=== PATIENT | female | born 1955 | race Caucasian/White ===

== ENCOUNTER 2016-10-14 09:48 | Observation (INO) | payer BC ==
[2016-10-14] MEDS ORDERED: NS 0.9% 1000 ML* 2,000 ML IV ONE (10:28)
[2016-10-14 10:43] LABS: Hematocrit 44 % (35-47); Hemoglobin 14.8 g/dl (12.0-16.0); Mean Corpuscular HGB Conc 33 g/dl (31-36); Mean Corpuscular Hemoglobin 31 pg (27-31); Mean Corpuscular Volume 93 fL (80-97); Mean Platelet Volume 8 um3 (7.4-10.4); Red Blood Count 4.76 10^6/ul (4.0-5.4); Red Cell Distribution Width 15 % (10.5-15); White Blood Count 10.8 10^3/ul (3.5-10.8)
[2016-10-14 10:56] LABS: Urine Bilirubin Negative (Negative); Urine Glucose Negative (Negative); Urine Nitrite Negative (Negative)
[2016-10-14 11:09] LABS: Albumin 4.4 g/dL (3.2-5.2); BUN/Creatinine Ratio 26.2 (8-20); C Reactive Protein 7.57 mg/L (< 5.00); Calcium 9.7 mg/dL (8.6-10.3); EGFR African American 127.8 (>60); EGFR Non-African American 99.4 (>60); Potassium 4.2 mmol/L (3.5-5.0); Total Bilirubin 1.3 mg/dL (0.2-1.0); Total Protein 7.4 g/dL (6.4-8.9)
[2016-10-14] MEDS ORDERED: Iohexol 300* (CONTRAST) 10 ML SDV IV ONE (11:36)
--- NOTE | 2016-10-14 13:45 | RAD ---
INDICATION: Abdominal pain, cramping, vomiting, bloody diarrhea. History of colitis last year. COMPARISON: October 01, [address] and January 11, [address] TECHNIQUE: Multidetector CT images were obtained from the lung bases to the ischial tuberosities with 85 mL Omnipaque 300 IV and oral contrast. Multiplanar reformation. REPORT: Mild dependent subsegmental atelectasis at the lung bases. Negative for pleural effusions. Normal size liver with fatty infiltration. No significant change in 1.6 x 1.5 cm relative hyperdense or enhancing lesion at the dome of the liver strongly favoring benign etiology with the differential including focal sparing of fatty infiltration and hemangioma. No suspicious focal hepatic lesions. No CT abnormality of the gallbladder, pancreas, spleen. Enteric contrast extends to the mid transverse colon. There is long segment moderate mural thickening of the descending colon through the descending colon sigmoid junction extending over approximate 22 cm in length. The sigmoid colon is remarkable for mild diverticulosis without findings of diverticulitis. Normal retrocecal appendix visualized. Negative for ascites, free air, or significant hernias. Normal adrenal glands. Unremarkable kidneys with symmetric nephrograms and pyelograms. Unremarkable ureters and largely decompressed urinary bladder. Unremarkable anteverted uterus. Bilateral small probable cortical inclusion cysts at the ovaries unchanged from the January 11, 2016 exam. Negative for lymphadenopathy. Normal diameter abdominal aorta and iliac arteries with mild atherosclerotic plaque. Normal opacification of the celiac axis, superior mesenteric artery, inferior mesenteric artery, and renal arteries. While less sensitive than a dedicated CT angiogram protocol there is no suggestion of visceral artery stenosis. Normal opacification of the superior mesenteric, splenic, and portal veins. No suspicious focal osseous lesions evident. Advanced L5-S1 degenerative spondylosis. Negative for stigmata of inflammatory sacroiliitis. IMPRESSION: 1. Long segment moderate circumferential mural thickening of the descending colon consistent with nonspecific colitis. Greater involvement at the proximal and mid descending colon and absence of significant involvement at the sigmoid colon in contrast to the January 11, 2016 exam. The primary considerations include infectious and inflammatory etiologies. Negative for perienteric abscess or resulting bowel obstruction. 2. Diverticulosis of the sigmoid colon without findings of diverticulitis. 3. Fatty infiltration of the liver with unchanged low suspicion probable benign region of focal fatty sparing or hemangioma at the dome. 4. Negative for lymphadenopathy.
--- NOTE | 2016-10-14 14:02 | ED ---
Abdominal Pain/Female - HPI Summary HPI Summary: 61 female presents with complaints of lower abdominal cramping that began last night 10/14/16. She states she has been also experiencing blood in her stool and diarrhea. Admits to some nausea but has not vomited. Denies fever/chills, but does states she was in layers of clothes with a heated blanket last night and could not get warm. She is not currently in any pain or discomfort but states the blood in her stool and cramping is a change from her normal bowel movements. Patient had an episode of similar abdominal pain except worse approximately one year ago which she was diagnosed with ischemic colitis. She sees Dr Mendel [place]. She has not had any issues since the last episode until now. Patient has been suffering from UTI's often and is currently being treated with Nitro. States she has experienced tolerance from Cipro. Last normal bowel movement (for her) was approximately 2 days ago. Denies vaginal symptoms. Admits to urinary symptoms due to current UTI that has not gone away after 10 days of treatment. - History of Current Complaint Chief Complaint: EDAbdPain Stated Complaint: BLOODY STOOL/CRAMPING Time Seen by Provider: 10/14/16 10:11 Hx Obtained From: Patient ?: No Onset/Duration: Sudden Onset, Lasting Days, Worse Since Timing: Constant Severity Initially: Mild Severity Currently: Mild Pain Intensity: 0 Pain Scale Used: 0-10 Numeric Location: Diffuse Radiates: No Character: Cramping - similar to menstrual cramps Alleviating Factor(s): Nothing Associated Signs and Symptoms: Positive: Blood in Stool, Decreased Appetite, Nausea, Diarrhea Allergies/Adverse Reactions: Allergies Allergy/AdvReac Type Severity Reaction Status Date / Time Sulfa Drugs Allergy Intermediate Hives Verified 10/01/16 09:51 Home Medications: Home Medications Aspirin EC Low Dose* [Ecotrin EC Low Dose 81 MG*] 81 mg PO DAILY 10/14/16 [ History Confirmed 10/14/16] Cholecalciferol TAB* [Vitamin D TAB*] 400 unit PO BID 10/14/16 [History Confirmed 10/14/16] Rosuvastatin (NF) [Crestor (NF)] 5 mg PO DAILY 10/14/16 [History Confirmed 10/14] amLODIPine TAB* [Norvasc TAB*] 5 mg PO DAILY 10/14/16 [History Confirmed ] metFORMIN* [Glucophage 1000 MG TAB *] 1,000 mg PO BEDTIME 10/14/16 [History Confirmed 10/14/16] metFORMIN* [Glucophage 500 MG TAB *] 500 mg PO DAILY 10/14/16 [History Confirmed 10/14/16] PMH/Surg Hx/FS Hx/Imm Hx Endocrine/Hematology History: Reports: Hx Diabetes - on metformin for prediabetic Cardiovascular History: Reports: Hx Hypertension - ON MEDICATION, Other Cardiovascular Problems/Disorders - [place] Denies: Hx Pacemaker/ICD History: Denies: Hx Renal Disease Sensory History: Reports: Hx Contacts or Glasses Denies: Hx Hearing Aid Opthamlomology History: Reports: Hx Contacts or Glasses Psychiatric History: Reports: Hx Anxiety - ON MEDICATION, Hx Depression - ON MEDICATION Denies: Hx Panic Disorder - Cancer History Hx Chemotherapy: No Hx Radiation Therapy: No - Surgical History Surgery Procedure, Year, and Place: BACK SURGERY-2007 Hx Anesthesia Reactions: No Infectious Disease History: No Infectious Disease History: Denies: Hx Clostridium Difficile, Traveled Outside the [place] in Last 30 Days - Family History Known Family History: Positive: Cardiac Disease, Hypertension, Other - Colon Cancer - Social History Alcohol Use: Rare Substance Use Type: Reports: None Smoking Status (MU): Never Smoked Tobacco Review of Systems Constitutional: Negative Eyes: Negative ENT: Negative Cardiovascular: Negative Respiratory: Negative Positive: Abdominal Pain, Diarrhea, Nausea, Other - blood in stool Positive: burning, dysuria, frequency Musculoskeletal: Negative Skin: Negative Neurological: Negative Psychological: Normal All Other Systems Reviewed And Are Negative: Yes Physical Exam Triage Information Reviewed: Yes Vital Signs On Initial Exam: Initial Vitals Temp Pulse Resp BP Pulse Ox 97.8 F 75 20 148/63 95 10/14/16 09:52 10/14/16 09:52 10/14/16 09:52 10/14/16 09:52 10/14/16 09:52 Vital Signs Reviewed: Yes Appearance: Positive: Well-Appearing, No Pain Distress, Well-Nourished Skin: Positive: Warm, Skin Color Reflects Adequate Perfusion, Dry Head/Face: Positive: Normal Head/Face Inspection Eyes: Positive: Normal, Conjunctiva Clear ENT: Positive: Normal ENT inspection, Hearing grossly normal, Pharynx normal Neck: Positive: Supple, Nontender, No Lymphadenopathy Respiratory/Lung Sounds: Positive: Clear to Auscultation, Breath Sounds Present Cardiovascular: Positive: Normal, RRR, Pulses are Symmetrical in both Upper and Lower Extremities Abdomen Description: Positive: No Organomegaly, Soft, Other: - very minimal tenderness on deep palpation of lower left and right quadrants, umbilical. more uncomfortable.. Negative: Bruit, CVA Tenderness (R), CVA Tenderness (L), Distended, Guarding, McBurney's Point Tenderness, Peritoneal Signs Bowel Sounds: Positive: Hypoactive Pelvic Exam: Positive: external exam normal - per patient Musculoskeletal: Positive: Normal, Strength/ROM Intact Neurological: Positive: Normal, Sensory/Motor Intact, Alert, Oriented to Person Place, Time Psychiatric: Positive: Normal, Affect/Mood Appropriate - [place] Coma Scale Coma Scale Total: 15 Diagnostics - Vital Signs Vital Signs Temp Pulse Resp BP Pulse Ox 10/14/16 12:37 55 125/51 96 10/14/16 12:13 65 96 10/14/16 11:00 66 95 10/14/16 10:20 80 92 10/14/16 10:17 129/56 10/14/16 09:52 97.8 F 75 20 148/63 95 - Laboratory Lab Results: Lab Results 10/14/16 10/14/16 10/14/16 Range/Units 10:15 10:20 10:20 WBC 10.8 (3.5-10.8) 10^3/ul RBC 4.76 (4.0-5.4) 10^6/ul Hgb 14.8 (12.0-16.0) g/dl Hct 44 (35-47) % MCV 93 (80-97) fL MCH 31 (27-31) pg MCHC 33 (31-36) g/dl RDW 15 (10.5-15) % Plt Count 209 (150-450) 10^3/ul MPV 8 (7.4-10.4) um3 Neut % (Auto) 86.2 H (38-83) % Lymph % (Auto) 6.9 L (25-47) % [place] % (Auto) 4.3 (1-9) % Eos % (Auto) 1.0 (0-6) % Baso % (Auto) 1.6 (0-2) % Absolute Neuts (auto) 9.3 H (1.5-7.7) 10^3/ul Absolute Lymphs (auto) 0.7 L (1.0-4.8) 10^3/ul Absolute Monos (auto) 0.5 (0-0.8) 10^3/ul Absolute Eos (auto) 0.1 (0-0.6) 10^3/ul Absolute Basos (auto) 0.2 (0-0.2) 10^3/ul Absolute Nucleated RBC 0 10^3/ul Nucleated RBC % 0 Sodium 137 (133-145) mmol/L Potassium 4.2 (3.5-5.0) mmol/L Chloride 102 (101-111) mmol/L Carbon Dioxide 24 (22-32) mmol/L Anion Gap 11 (2-11) mmol/L BUN 16 (6-24) mg/dL Creatinine 0.61 (0.51-0.95) mg/dL Est GFR ( Amer) 127.8 (>60) Est GFR (Non-Af Amer) 99.4 (>60) BUN/Creatinine Ratio 26.2 H (8-20) Glucose 120 H (70-100) mg/dL Lactic Acid (0.5-2.0) mmol/L Calcium 9.7 (8.6-10.3) mg/dL Total Bilirubin 1.30 H (0.2-1.0) mg/dL AST 20 (13-39) U/L ALT 23 (7-52) U/L Alkaline Phosphatase 78 (34-104) U/L C-Reactive Protein 7.57 H (< 5.00) mg/L Total Protein 7.4 (6.4-8.9) g/dL Albumin 4.4 (3.2-5.2) g/dL Globulin 3.0 (2-4) g/dL Albumin/Globulin Ratio 1.5 (1-3) Lipase 33 (11.0-82.0) U/L Urine Color Johanny Urine Appearance Clear Urine pH 7.0 (5-9) Ur Specific [place] 1.018 (1.010-1.030) Urine Protein Negative (Negative) Urine Ketones Trace H (Negative) Urine Blood Negative (Negative) Urine Nitrate Negative (Negative) Urine Bilirubin Negative (Negative) Urine Urobilinogen Negative (Negative) Ur Leukocyte Esterase Negative (Negative) Urine Glucose Negative (Negative) Urine Ascorbic Acid * H (Negative) 10/14/16 Range/Units 10:20 WBC (3.5-10.8) 10^3/ul RBC (4.0-5.4) 10^6/ul Hgb (12.0-16.0) g/dl Hct (35-47) % MCV (80-97) fL MCH (27-31) pg MCHC (31-36) g/dl RDW (10.5-15) % Plt Count (150-450) 10^3/ul MPV (7.4-10.4) um3 Neut % (Auto) (38-83) % Lymph % (Auto) (25-47) % [place] % (Auto) (1-9) % Eos % (Auto) (0-6) % Baso % (Auto) (0-2) % Absolute Neuts (auto) (1.5-7.7) 10^3/ul Absolute Lymphs (auto) (1.0-4.8) 10^3/ul Absolute Monos (auto) (0-0.8) 10^3/ul Absolute Eos (auto) (0-0.6) 10^3/ul Absolute Basos (auto) (0-0.2) 10^3/ul Absolute Nucleated RBC 10^3/ul Nucleated RBC % Sodium (133-145) mmol/L Potassium (3.5-5.0) mmol/L Chloride (101-111) mmol/L Carbon Dioxide (22-32) mmol/L Anion Gap (2-11) mmol/L BUN (6-24) mg/dL Creatinine (0.51-0.95) mg/dL Est GFR ( Amer) (>60) Est GFR (Non-Af Amer) (>60) BUN/Creatinine Ratio (8-20) Glucose (70-100) mg/dL Lactic Acid 2.5 H* (0.5-2.0) mmol/L Calcium (8.6-10.3) mg/dL Total Bilirubin (0.2-1.0) mg/dL AST (13-39) U/L ALT (7-52) U/L Alkaline Phosphatase (34-104) U/L C-Reactive Protein (< 5.00) mg/L Total Protein (6.4-8.9) g/dL Albumin (3.2-5.2) g/dL Globulin (2-4) g/dL Albumin/Globulin Ratio (1-3) Lipase (11.0-82.0) U/L Urine Color Urine Appearance Urine pH (5-9) Ur Specific [place] (1.010-1.030) Urine Protein (Negative) Urine Ketones (Negative) Urine Blood (Negative) Urine Nitrate (Negative) Urine Bilirubin (Negative) Urine Urobilinogen (Negative) Ur Leukocyte Esterase (Negative) Urine Glucose (Negative) Urine Ascorbic Acid (Negative) Result Diagrams: 10/14/16 19:01 10/14/16 10:20 Lab Statement: Any lab studies that have been ordered have been reviewed, and results considered in the medical decision making process. - CT abdomen/pelvis CT Interpretation: Positive (See Comments) - 1. Long segment moderate circumferential mural thickening of the descending colon consistent with nonspecific colitis. Greater involvement at the proximal and mid descending colon and absence of significant involvement at the sigmoid colon in contrast to the January 11, 2016 exam. The primary considerations include infectious and inflammatory etiologies. Negative for perienteric abscess or resulting bowel obstruction. 2. Diverticulosis of the sigmoid colon without findings of diverticulitis. 3. Fatty infiltration of the liver with unchanged low suspicion probable benign region of focal fatty sparing or hemangioma at the dome. 4. Negative for lymphadenopathy. CT Interpretation Completed By: Radiologist Re-Evaluation - Re-Evaluation First Eval Re-Evaluation Time: 10:55 Change: Unchanged - patient is still feeling fine, without pain and nausea Second Eval Re-Evaluation Time: 13:20 Change: Unchanged - patient is still feeling ok and is aware of the plan Abdominal Pain Fem Course/Dx - Course Course Of Treatment: labs, UA, stool cultures and CT with contrast obtained. Fluids given. Patient was not having any pain or nausea at this time therefore not addressed. Spoke with Dr Oglesby, her GI physician who was also production planner. States he thinks she needs to be admitted as this may be the beginning of ischemic bowel flare up. Also instructed to begin antibiotcs. Contacts Dr Jimenez for admission. patient is aware with this plan and agrees. - Diagnoses Differential Diagnosis: Positive: Appendicitis, Bowel Obstruction, Constipation , Diverticulitis, Irritable Bowel Syndrome, Urinary Tract Infection, Other Provider Diagnoses: Colitis - Provider Notifications Discussed Care Of Patient With: Dr Tony Rodriguez Time Discussed With Above Provider: 14:00 Instructed by Provider To: Admit As Inpatient Discharge - Discharge Plan Condition: Stable Disposition: ADMITTED TO [facility]
[2016-10-14] MEDS ORDERED: Piperac/Tazob 3.375 gm in NS* 3.375 GM/100 ML BAG IVPB ONE (15:00)
[2016-10-14] MEDS ORDERED: Acetaminophen TAB* 325 MG PO PRN (15:15)
[2016-10-14] MEDS ORDERED: Dextrose 50% Syringe 50 ML* 25 GM/50 ML SYRINGE IV PUSH PRN (15:15)
[2016-10-14] MEDS: Insulin LISPRO* 1 UNITS UNIT SUBCUT SCH (17:33)
[2016-10-14 19:28] LABS: Hematocrit 43 % (35-47); Hemoglobin 13.7 g/dl (12.0-16.0)
--- NOTE | 2016-10-14 20:00 | HP ---
HISTORY AND PHYSICAL: DATE OF ADMISSION: 10/14/16 PRIMARY CARE PROVIDER: Kiana Fink NP ATTENDING PHYSICIAN WHILE IN THE HOSPITAL: Maite Avalos MD * (report dictated by Rusty White NP) CHIEF COMPLAINT: 1. Abdominal discomfort. 2. Bright red blood per rectum. HISTORY OF PRESENT ILLNESS: Mrs. Hewitt is a 61-year-old female patient who has a history of hypertension, hyperlipidemia, diabetes on p.o. medications only , history of GERD and ischemic colitis. She had an episode in December 2015. She comes in today stating that she woke up around 11:15 last night. She was feeling fine prior to this. She had a sudden onset of lower abdominal discomfort and cramping. She noticed that she was having some blood per rectum similar to her last episode but not nearly as much pain as what she had before. She was immediately concerned and she came into the hospital to be evaluated as she had had this previously and the fact that she started just having maribel blood per rectum was concerning to her. She said that she did have some chills. She did state that she had some dry heaves and vomiting. She had a bowel movement here in the ED, which appeared to be brown in color and no more blood. She again was concerned and was evaluated in the ED. Ultimately, CAT scan was obtained and there was concern for a possible ischemic colitis again and the hospitalist service was asked to evaluate in admission. She denied any chest pain, denied having any documented fevers and denied having any shortness of breath. PAST MEDICAL HISTORY: Significant for: 1. Hypertension. 2. Chronic back pain. 3. Hyperlipidemia. 4. Diabetes. 5. GERD. 6. Ischemic colitis. PAST SURGICAL HISTORY: The patient has had a history of lumbar spine surgery. HOME MEDICATIONS: Include: 1. Metformin 500 mg in the morning, 1000 mg at bedtime. 2. Norvasc 5 mg daily. 3. Diovan 80 mg daily. 4. Crestor 5 mg daily. 5. Zantac 150 mg p.o. b.i.d. 6. Omeprazole 20 mg daily. 7. Fish oil 1000 mg daily. 8. Multivitamin 1 tablet daily. 9. Lactobacillus 1 capsule daily. 10. Cranberry 1 capsule p.o. b.i.d. 11. Coenzyme Q10 10 mg p.o. daily. 12. Tylenol 650 mg every 6 hours as needed. 13. Aspirin 81 mg daily. 14. Calcium carbonate 2 tabs p.o. daily. 15. Oyster calcium 500 mg p.o. daily. 16. Vitamin D 400 units daily. ALLERGIES: To medications include SULFA. FAMILY HISTORY: Her mother had a history of [place] and colon cancer. Father had lung cancer. SOCIAL HISTORY: The patient does not smoke. Occasionally drinks alcohol. Surrogate decision maker is her . REVIEW OF SYSTEMS: There is no documented fever. She does admit to having some chills. She denies having any significant weight change. There was no double vision. She denies having any ear discharge. There was no rhinorrhea. There is no sore throat. No thyroid enlargement. She denies having any chest pain. There is no orthopnea. There is no nocturnal dyspnea. There was abdominal discomfort per my HPI. There was episodes of nausea with vomiting. No dysuria. No frequency. She denies having any loss of consciousness. No pruritus and no skin ulcerations. Review of 14 systems completed, all others were negative. PHYSICAL EXAMINATION GENERAL: At this time, Mrs. Hewitt is a 61-year-old female patient. She is sitting in the ER stretcher. She does not appear to be in any acute distress. VITAL SIGNS: Reveal blood pressure 132/64, pulse 74, respirations 18, O2 sat 99 %, temperature 98.7. HEENT: Head: Atraumatic, normocephalic. Eyes: EOMs are intact. Sclerae anicteric and not pale. Throat: Oral mucosa appears to be moist. No oropharyngeal erythema. NECK: Supple. LUNGS: Clear to auscultation bilaterally. HEART: Sounds S1, S2. Regular rate and rhythm. No murmurs, rubs, or gallops. ABDOMEN: Soft, it was flat. She is actually nontender. Bowel sounds were present. EXTREMITIES: Pulses were 2+ throughout. She is able to move all 4 extremities with 5/5 strength. NEUROLOGIC: The patient is awake, alert, and oriented x3. Tongue midline. Human Resources Hr Generalist were equal. No gross focal deficits. SKIN: Intact. DIAGNOSTIC STUDIES/LABORATORY DATA: Today revealed WBC of 10.8, RBC of 4.76, hemoglobin 14.8, hematocrit of 44, platelet count of 209. Sodium was 137, potassium 4.2, chloride 102, bicarb 24, BUN 16, creatinine 0.61, glucose 120, lactic 2.5, and calcium 9.7, total bili 1.3, AST 20, ALT 23, alk phos 78. CRP is 7.5, albumin 4.4, lipase 33. Urine was obtained, showed trace ketones. Urine ascorbic acid was noted. The CT of the abdomen and pelvis revealed a long segment moderate circumferential mural thickening of the descending colon consistent with a nonspecific colitis, greater involvement of the proximal and mid descending colon and is absent of significant involvement at the sigmoid in contrast to . The primary considerations include infectious and inflammatory etiologies, negative for perienteric abscess or resulting bowel obstruction. Diverticulosis of the sigmoid colon without diverticulitis. Fatty infiltrate of the liver was unchanged. Low suspicion, probable benign region of focal fatty sparing or hemangioma at the dome. Negative for lymphadenopathy. Old medical records reviewed. ASSESSMENT AND PLAN: Mrs. Hewitt is a 61-year-old female patient coming into the ER today with complaints of abdominal discomfort sudden onset with bright red blood per rectum and on evaluation was found to have colitis. She will be admitted under observation status for: 1. Colitis: I suspect the etiology of this is ischemic colitis, which is unusual because this is a second bout she has had in almost a year's time. I think at this point, I did touch base with Dr. Oglesby, who will evaluate the patient. I am going to send off a hypercoagulable workup per the request of Dr. Oglesby. We will go ahead and place her on Zosyn, clear liquid diet. She may undergo a flex sig with Dr. Oglesby tomorrow. If he deems appropriate, we will try for pain control. We will continue to follow and monitor closely. 2. Hypertension. Continue meds as prescribed with the exception of losartan. 3. Chronic back pain. Continue p.r.n. Tylenol. 4. Hyperlipidemia. Continue statin therapy. 5. Gastroesophageal reflux disease. Continue PPI therapy. 6. Diabetes. She will be on a lispro sliding scale. 7. DVT prophylaxis. I am just going to put her on SCD's because of the bright red blood per rectum for now. 8. Fluids, electrolytes, nutrition. Clear liquid diet. TIME SPENT: Time spent on the admission was approximately 60 minutes, greater than half the time was spent [id number] with the patient obtaining my history and physical, and the other half time was spent going over the plan of care with patient and implementing plan of care. I did discuss the plan of care with my attending, Dr. Avalos, she is in agreement. RUSTY WHITE NP CC: Kiana Fink NP; Dr. Oglesby* [id number]/[facility] #: [id number] [facility]
[2016-10-14] MEDS: NS 0.9% 1000 ML* 1,000 ML IV SCH (20:33)
[2016-10-14] MEDS: Piperac/Tazob 3.375 gm in NS* 3.375 GM/100 ML BAG IVPB SCH (20:33)
--- NOTE | 2016-10-14 22:25 | CONS ---
CONSULTATION REPORT: DATE OF CONSULT: 10/14/16 REASON FOR CONSULTATION: Abdominal pain, rectal bleeding, nausea, vomiting, and inflammatory change of the colon. NARRATIVE: This is a 61-year-old woman with a history of diabetes, hypertension , and recurrent UTIs. She was actually hospitalized in December of 2015 for an episode of ischemic colitis, which resolved with conservative therapy. She did well thereafter, but presents today with 24 hours of sudden onset of abdominal pain associated with diarrhea and rectal bleeding. Her symptoms developed rather suddenly yesterday. She was feeling well prior to that. She also experienced nausea and vomiting. She presents to the emergency room and was found to have inflammatory change involving the descending colon on her CAT scan. Prior to the onset of her symptoms, she was feeling well. She did go to [facility] about 5 days ago, but there is no contacts with any infection. She has also been on nitrofurantoin for several weeks for recurrent UTIs. Her last colonoscopy was in July of 2015, which showed diverticulosis and a few small polyps, but no other pathology. PAST MEDICAL HISTORY: Include diabetes, hypertension, hyperlipidemia, and UTI. MEDICATIONS: Ambulatory medicines are: 1. Calcium. 2. Omeprazole 20 mg a day. 3. Crestor 5 mg a day. 4. Diovan 80 mg a day. 5. Norvasc 5 mg a day. 6. Metformin 500 mg alternating with 1000 mg daily. FAMILY HISTORY: Notable for her mother who had colorectal cancer. REVIEW OF SYSTEMS: She denies any melena, fevers, or chills. She has had no oral lesion, skin rashes, or weight loss. PHYSICAL EXAM: She is a well-appearing woman, in no acute distress. Temperature is 98.1, blood pressure is 134/72, heart rate of 72 and regular. She is not pale. Lungs are clear. Cardiac exam reveals a regular rhythm without murmur. Abdomen is soft without any tenderness, mass, or organomegaly. Bowel sounds are hypoactive, but present. DIAGNOSTIC STUDIES/LAB DATA: Data include a white count of 7.8, hemoglobin of 14.8. C-reactive protein of 7.57. C. difficile that is negative. Stool lactoferrin that is negative as well. IMPRESSION: A 61-year-old woman with a prior history of ischemic colitis, presenting with sudden onset of segmental colitis involving the descending colon. This certainly could be consistent with a second attack of ischemic colitis. It is un usual to have a second attack, but it is certainly possible. Clinically, she is doing relatively well at this point and is now pain free. I recommended an unprepped sigmoidoscopy to better define this inflammatory change, which we will proceed with tomorrow. I also recommended a hypercoagulable workup, which we discussed as well. CC: Dr. Peace * [id number]/[facility] #: [id number] [facility]
[2016-10-15] MEDS: Piperac/Tazob 3.375 gm in NS* 3.375 GM/100 ML BAG IVPB SCH ×2 (04:34→12:40)
[2016-10-15] MEDS ORDERED: Omeprazole CAP* 20 MG PO SCH (07:30)
[2016-10-15] MEDS: NS 0.9% 1000 ML* 1,000 ML IV SCH (08:30)
[2016-10-15] MEDS: Insulin LISPRO* 1 UNITS UNIT SUBCUT SCH ×3 (08:46→16:24)
[2016-10-15] MEDS ORDERED: Lactobacillus Acidophilu (GG)* 1 CAP CAP PO SCH (09:00)
[2016-10-15] MEDS ORDERED: Aspirin EC Low Dose* 81 MG TAB.EC PO SCH (09:00)
[2016-10-15] MEDS ORDERED: Atorvastatin* 10 MG TAB PO SCH (09:00)
[2016-10-15] MEDS ORDERED: Multivitamins/Minerals TAB PO SCH (09:00)
[2016-10-15] MEDS ORDERED: fentaNYL* 50 MCG/ML 2 ML VIAL (100 MCG VIAL) ONE (16:08)
[2016-10-15] MEDS ORDERED: Midazolam* 1 MG/ML 10 ML VIAL (10 MG) ONE (16:08)
[2016-10-15 17:28] VITALS: BP 122/51
--- NOTE | 2016-10-16 05:27 | PRO ---
DATE OF PROCEDURE: 10/15/16 - ROOM #410 PROCEDURE: Flexible sigmoidoscopy with biopsies. MEDICINES: Versed 7 mg IV, Fentanyl 50 mcg IV. NARRATIVE: This is a 61-year-old woman who presented to the hospital with sudden onset of abdominal pain, diarrhea,and rectal bleeding. She did undergo a CAT scan of the abdomen,which suggests a colitis involving the descending colon. She has been admitted and is feeling better. The bleeding has subsided. Interestingly, last year, she had a similar presentation, which was thought to be secondary to ischemic colitis. We recommended a flexible sigmoidoscopy at this point to better demonstrate the inflammatory changes seen on the CAT scan. DESCRIPTION OF PROCEDURE: After the procedure was discussed with the patient, risks and benefits were outlined, written consent was obtained. The patient was placed in the left lateral decubitus position, and a rectal exam was performed. The rectal exam was normal without any palpable abnormality. At that point, sigmoidoscopy was carried out. A video pediatric flexible colonoscope was inserted anally and advanced to about 70 cm, which seemed to correlate to the descending colon. This was an unprepped exam. There was material seen throughout the colon that was yellow, but not bloody. Views were generally good. The patient tolerated the procedure well and there were no immediate complications. FINDINGS: Sigmoidoscopy to what appeared to be the descending colon was performed. Within the descending colon, there was an inflammatory change appreciated. There was streaky erythema and friability to the mucosa and some small ulcerations, which was suggestive of [id number] ischemic colitis. Biopsies were obtained. More distally in the sigmoid colon, there were no mucosal abnormalities seen or inflammatory change. She did have some sigmoid diverticulosis. No polyp or mass was identified. CONCLUSION: Inflammatory change in the descending colon highly suggestive of ischemic colitis, which was biopsied. RECOMMENDATION: The results were discussed with the patient. She likely can be discharged. This is her second episode of ischemic colitis and therefore I agree with pursuing a hypercoagulable workup. CC: Inés Peace MD* [id number]/[facility] #: [id number] MTDD
--- NOTE | 2016-10-16 06:35 | DS ---
DISCHARGE SUMMARY: DATE OF ADMISSION: 10/14/16 DATE OF DISCHARGE: 10/15/16 PRIMARY CARE PROVIDER: Kiana Fink NP PRIMARY DIAGNOSIS: Ischemic colitis. SECONDARY DIAGNOSES: Include: 1. Hypertension. 2. Hyperlipidemia. 3. Diabetes. 4. Gastroesophageal reflux disease. 5. History of ischemic colitis. MEDICATIONS ON DISCHARGE: Include: 1. Ciprofloxacin 500 mg twice daily for 5 additional days. 2. Metformin 500 mg in the morning and 1000 mg at bedtime. 3. Fish oil 1000 mg daily. 4. Coenzyme Q10 10 mg daily. 5. Aspirin 81 mg daily. 6. Acetaminophen 650 mg every 6 hours as needed for pain or fever. 7. Vitamin D 400 mg twice daily. 8. Calcium 500 mg daily. 9. Calcium carbonate and cholecalciferol 2 tabs daily. 10. Prilosec 20 mg daily. 11. Multivitamin 1 tab daily. 12. Lactobacillus 1 tab daily. 13. Cranberry, vitamin C, vitamin E 1 cap twice daily. 14. Valsartan 80 mg daily. 15. Rosuvastatin 5 mg daily. 16. Ranitidine 150 mg twice daily. Please note discontinuation of: Antihypertensives. PERTINENT LABORATORY DATA: Hemoglobin on presentation 14.8, followup next day 13.7. PROCEDURES PERFORMED DURING HOSPITAL STAY: Sigmoidoscopy performed by Dr. Oglesby notable for apparent ischemic colitis with biopsies pending. HISTORY OF PRESENT ILLNESS AND HOSPITAL COURSE: This is a 61-year-old female with past medical history as outlined in the history of present illness on the day of admission presented to the hospital with many episodes of bright red blood per rectum and crampy abdominal pain. She noted this pain was similar to previous episode of ischemic colitis. She had a CT scan of her abdomen on the day of presentation notable for the long segment with moderate circumferential mural thickening of the descending colon with the greater involvement of the proximal and mid descending colon and absence of significant involvement of the sigmoid colon, which is in contrast to her previous imaging in December 2015. She was admitted to the hospitalist service, received IV fluids and serial lab testing indicated above. Discharge hemoglobin of 13.7. She underwent sigmoidoscopy with Dr. Oglesby notable for ischemic colitis based on appearance. She had no further bright red blood per rectum after admission to the hospital. Abdominal pain was resolved. She was tolerating a diet on the day of discharge. Recurrent episodes of ischemic colitis are rare and therefore on presentation she did have a hypercoagulable workup sent including activated protein C, antithrombin 3, cardiolipins, factor V Leiden mutation, homocysteine , lupus anticoagulant performed on gene mutation, protein C and protein S activity. All these tests will need followup after her discharge. There were no complications during the patient's hospital stay. At followup please; 1. Followup aforementioned blood tests as indicated above. 2. Followup on biopsy taken by Dr. Oglesby. 3. Ensure patient follows up with Dr. Oglesby as indicated in her discharge work. She shall be seen in 1 to 2 weeks, discussed with the patient. Please follow blood pressure on decreased antihypertensive regimen. Discharge blood pressure is 122/51. 4. Reasons to return to the hospital included but not limited to recurrent worsening symptoms including abdominal pain, bright red blood per rectum, bleeding from any source, fevers, chills, night sweats, inability to tolerate food or medications, chest pain, shortness of breath, loss of consciousness, near loss of consciousness were discussed with the patient and she acknowledged understanding. TIME SPENT: Greater than 40 minutes was spent on the discharge of this patient , greater than half was spent [id number] with the patient. CC: Kiana Fink NP * [id number]/[facility] #: [id number] LISA
[2016-10-18 11:00] LABS: Protein C Activity 133 % (70 - 150)
[2016-10-18 13:38] LABS: LAC APTT 29 sec (26 - 36); Lac DRVVT Screen Ratio 0.8 ratio (0.0 - 1.1); Prothrombin Time(LAC) 11.1 sec
[2016-10-18 15:31] LABS: Phospholipid Ab IgG < 9.4 GPL; Phospholipid Ab IgM, S > 150.0 MPL
== END 2016-10-15 18:20 | disposition home or self-care (01) ==
LOC: ED 09:48 → MED 14:09
PROVIDERS: ADMIT Internal Medicine; ATTEND Internal Medicine
PROC: 0DBM8ZX Excision of Descending Colon, Via Natural or Artificial Opening Endoscopic, Diagnostic (ICD-10-PCS; principal; 2016-10-14)
DX: K55.9 Vascular disorder of intestine, unspecified (principal); I10 Essential (primary) hypertension; E78.5 Hyperlipidemia, unspecified; E11.9 Type 2 diabetes mellitus without complications; K21.9 Gastro-esophageal reflux disease without esophagitis; Z79.899 Other long term (current) drug therapy; Z79.84 Long term (current) use of oral hypoglycemic drugs; Z79.82 Long term (current) use of aspirin; Z88.2 Allergy status to sulfonamides; M54.9 Dorsalgia, unspecified; G89.29 Other chronic pain; K76.0 Fatty (change of) liver, not elsewhere classified
CPT/HCPCS: 36415; 74177; 80053; 81003; 81240; 81241; 83090; 83605; 83630; 83690; 85014; 85018; 85025; 85300; 85303; 85306; 85307; 85610; 85613; 85730; 86140; 86147; 87493; 96361; 96365; 96366; 99283; A9270-GY; G0378; J2250; J2543; J3010; Q9967

== ENCOUNTER 2017-01-28 09:57 | Emergency (ER) | payer BC ==
--- NOTE | 2017-01-28 10:47 | RAD ---
HISTORY: Trauma, rule out hemorrhage COMPARISONS: August 17, 2014 TECHNIQUE: Multiple contiguous axial CT scans were obtained of the head without intravenous contrast. FINDINGS: HEMORRHAGE/INFARCT: There is no hemorrhage or acute infarct. MASSES/SHIFT: There is no mass or shift. EXTRA-AXIAL SPACES: There are no extra-axial fluid collections. SULCI AND VENTRICLES: The sulci and ventricles are normal in size and position for the patient's stated age. CEREBRUM: There are no focal parenchymal abnormalities. BRAINSTEM: There are no focal parenchymal abnormalities. CEREBELLUM: There are no focal parenchymal abnormalities. VESSELS: The vessels are grossly normal. PARANASAL SINUSES: The paranasal sinuses are clear. ORBITS: The orbits are unremarkable. BONES AND SOFT TISSUE: No bone or soft tissue abnormalities are noted. OTHER: None IMPRESSION: NO ACUTE INTRACRANIAL PATHOLOGY.
[2017-01-28 11:33] VITALS: BP 129/65
--- NOTE | 2017-01-28 15:47 | ED ---
Natalie Mckoy Edward, scribed for Hebert Tabor MD on 01/28/17 at 1052 . Head Injury - HPI Summary HPI Summary: 61 y/o female presents to ED s/p head injury yesterday. Patient hit her head with the back of metal chair. Patient was asymptomatic immediately following the injury, including no JEFFREY noted. No LOC after injury. Today, the patient developed a mild JEFFREY on the R side rated at a 1/10. There is ecchymosis on the L upper arm secondary to hitting her arm on a chair on a bus recently. Patient denies vomiting, neck pain, CP, and SOB. Patient is on a blood thinner. PMHx chronic back pain and ischemic colitis. - History Of Current Complaint Chief Complaint: EDHeadInjury Stated Complaint: HIT HEAD Time Seen by Provider: 01/28/17 10:47 Hx Obtained From: Patient Mechanism Of Injury: Blunt Trauma Onset/Duration: Started Hours Ago - Light JEFFREY this morning Onset of Pain: Hours - This morning Severity Currently: None Severity Initially: Mild Pain Intensity: 1 Associated Signs And Symptoms: Negative - No CP, SOB, neck pain, vomiting, Bruising - Upper L arm, old injury, Headache - Mild, started this morning - Allergies/Home Medications Allergies/Adverse Reactions: Allergies Allergy/AdvReac Type Severity Reaction Status Date / Time Sulfa Drugs Allergy Intermediate Hives Verified 10/01/16 09:51 PMH/Surg Hx/FS Hx/Imm Hx Previously Healthy: No Endocrine/Hematology History: Reports: Hx Diabetes - on metformin for prediabetic Cardiovascular History: Reports: Hx Hypertension - ON MEDICATION, Other Cardiovascular Problems/Disorders - LEAKY VALVE Denies: Hx Pacemaker/ICD GI History: Reports: Hx Gastroesophageal Reflux Disease History: Denies: Hx Renal Disease Musculoskeletal History: Reports: Hx Back Problems Sensory History: Reports: Hx Contacts or Glasses Denies: Hx Hearing Aid Opthamlomology History: Reports: Hx Contacts or Glasses Psychiatric History: Reports: Hx Anxiety - ON MEDICATION, Hx Depression - ON MEDICATION Denies: Hx Panic Disorder - Cancer History Hx Chemotherapy: No Hx Radiation Therapy: No - Surgical History Surgery Procedure, Year, and Place: BACK SURGERY-2007 Hx Anesthesia Reactions: No Infectious Disease History: No Infectious Disease History: Denies: Hx Clostridium Difficile, Traveled Outside the [place] in Last 30 Days - Family History Known Family History: Positive: Cardiac Disease, Hypertension, Other - Colon Cancer - Social History Alcohol Use: Rare Substance Use Type: Reports: None Smoking Status (MU): Never Smoked Tobacco Review of Systems Constitutional: Negative Eyes: Negative ENT: Negative Cardiovascular: Negative Negative: Chest Pain Respiratory: Negative Negative: Shortness Of Breath Gastrointestinal: Negative Negative: Vomiting Genitourinary: Negative Musculoskeletal: Negative - No neck pain, back pain Positive: Bruising - Upper L arm. Old injury Positive: Headache - Mild. Negative: Syncope Psychological: Normal All Other Systems Reviewed And Are Negative: Yes Physical Exam - Summary Physical Exam Summary: The patient is well-nourished in no acute distress and in no acute pain. The skin is warm and dry and skin color reflects adequate perfusion. HEENT: The head is normocephalic and atraumatic. The pupils are equal and reactive. The conjunctivae are clear and without drainage. Nares are patent and without drainage. Mouth reveals moist mucous membranes and the throat is without erythema and exudate. The external ears are intact. The ear canals are patent and without drainage. The tympanic membranes are intact. Neck is supple with full range of motion and non-tender. There are no carotid bruits. There is no neck vein distension. Respiratory: Chest is non-tender. Lungs are clear to auscultation and breath sounds are symmetrical and equal. Cardiovascular: Hear is regular rate and rhythm. There is no murmur or rub auscultated. There is no peripheral edema and pulses are symmetrical and equal. Abdomen: The abdomen is soft and non-tender. There are normal bowel sounds heard in all four quadrants and there is no organomegaly palpated. Musculoskeletal: There is no back pain noted. Extremities are non-tender with full range of motion. There is good capillary refill. There is no peripheral edema or calf tenderness elicited. There are no racoon signs or ayala signs. Neurological: Patient is alert and oriented to person, place and time. The patient has symmetrical motor strength in all four extremities. Cranial nerves are grossly intact. Deep tendon reflexes are symmetrical and equal in all four extremities. Psychiatric: The patient has an appropriate affect and does not exhibit any anxiety or depression. Triage Information Reviewed: Yes Vital Signs On Initial Exam: Initial Vitals Temp Pulse Resp BP Pulse Ox 97.9 F 86 20 149/67 97 01/28/17 10:10 01/28/17 10:10 01/28/17 10:10 01/28/17 10:10 01/28/17 10:10 Vital Signs Reviewed: Yes Diagnostics - Vital Signs Vital Signs Temp Pulse Resp BP Pulse Ox 01/28/17 10:12 96.2 F 83 20 149/67 98 01/28/17 10:10 97.9 F 86 20 149/67 97 - Laboratory Lab Statement: Any lab studies that have been ordered have been reviewed, and results considered in the medical decision making process. - CT BRAIN CT CT Interpretation: No Acute Changes - No acute intracranial pathology CT Interpretation Completed By: Radiologist Head Injury Course/Dx Assessment/Plan: Patient dropped a metal chair on her head yesterday. There was no pain initially, but developed a mild JEFFREY this morning. Brain CT showed no acute intracranial pathology. Pt will be discharged with a head contusion and chronic anticoagulation therapy with f/u with PCP in 2-3 days. - Diagnoses Differential Diagnosis/HQI/PQRI: Concussion Without LOC, Hematoma, Intracranial Bleed, Skull Fracture Provider Diagnoses: Head contusion, Anticoagulation therapy continued upon discharge Discharge - Discharge Plan Condition: Stable Disposition: HOME Patient Education Materials: Concussion (ED), Blood Thinners (ED) Referrals: Sandra Perez MD [Primary Care Provider] - 3 Days (Please follow up in 2 -3 days.) The documentation as recorded by the Natalie coelho Edward accurately reflects the service I personally performed and the decisions made by , Hebert Tabor MD.
== END 2017-01-28 11:34 | disposition home or self-care (01) ==
LOC: ED 09:57
DX: S00.93XA Contusion of unspecified part of head, initial encounter (principal); W22.8XXA Striking against or struck by other objects, initial encounter; Y93.9 Activity, unspecified; Y92.9 Unspecified place or not applicable; Z79.01 Long term (current) use of anticoagulants
CPT/HCPCS: 70450; 99282

== ENCOUNTER 2017-08-11 09:00 | Day surgery (SDC) | payer BC ==
[~2017-08-11 09:00] MED LIST: Buffered Lidocaine 0.9% SYRIN* 5 ML/SYR SYRINGE INTRADERM ONE
[2017-08-11] MEDS ORDERED: Buffered Lidocaine 0.9% SYRIN* 5 ML/SYR SYRINGE ONE (09:27)
[2017-08-11] MEDS ORDERED: ceFAZolin 2 GM PREMIX (*) 2 GM/50 ML BAG IVPB ONE (09:36)
[2017-08-11] MEDS ORDERED: Lidocaine 1% MPF wEPI 200,000* 30 ML SDV ONE ×2 (10:20→10:42)
[2017-08-11] MEDS ORDERED: Bupivacaine 0.25% SDV* 30 ML ONE ×2 (10:20→10:42)
[2017-08-11] MEDS ORDERED: fentaNYL* 50 MCG/ML 2 ML VIAL (100 MCG VIAL) ONE (10:57)
[2017-08-11] MEDS ORDERED: Midazolam* 1 MG/ML 2 ML VIAL (2 MG) ONE ×3 (10:57→11:21)
[2017-08-11] MEDS ORDERED: Mivacurium Chloride* 20 MG/10 ML VIAL IV ONE (11:21)
[2017-08-11] MEDS ORDERED: Naloxone* 0.4 MG/ML 1 ML VIAL IV PRN (11:23)
[2017-08-11 12:08] VITALS: BP 120/59
== END 2017-08-11 12:30 | disposition home or self-care (01) ==
LOC: OREAST 09:00
PROVIDERS: ATTEND Plastic Surgery
DX: D17.21 Benign lipomatous neoplasm of skin and subcutaneous tissue of right arm (principal); I10 Essential (primary) hypertension; E11.9 Type 2 diabetes mellitus without complications; Z79.84 Long term (current) use of oral hypoglycemic drugs; K21.9 Gastro-esophageal reflux disease without esophagitis
CPT/HCPCS: 88304; J0690; J2001; J2250; J3010

== ENCOUNTER 2018-04-25 06:32 | Day surgery (SDC) | payer BC ==
[~2018-04-25 06:32] MED LIST changes: +Dexamethasone IV* 4 MG/ML 1 ML (4 MG) IV SLOW PU ONE; +Dexamethasone IV* 4 MG/ML 1 ML (4 MG) ONE; +Famotidine IV* 10 MG/ML 2 ML (20 mg) IV ONE; +Famotidine IV* 10 MG/ML 2 ML (20 mg) ONE
[2018-04-25] MEDS ORDERED: Ketorolac INJ* 30 MG/ML 1 ML VIAL ONE (07:08)
[2018-04-25] MEDS ORDERED: Lidocaine 2% PF * 5 ML VIAL ONE (07:08)
[2018-04-25] MEDS ORDERED: Ondansetron INJ* 2 MG/ML VIAL ONE (07:08)
[2018-04-25] MEDS ORDERED: Propofol* 10 MG/ML 20 ML BTL IV PUSH ONE (07:08)
[2018-04-25] MEDS ORDERED: fentaNYL* 50 MCG/ML 5 ML VIAL (250 MCG VIAL) ONE (07:09)
[2018-04-25] MEDS ORDERED: Midazolam* 1 MG/ML 5 ML VIAL (5 MG) ONE (07:09)
[2018-04-25] MEDS ORDERED: BSS OPTH.SOL* BTL ONE (07:17)
[2018-04-25] MEDS ORDERED: Oxymetazoline 0.05% NASAL SPR* 15 ML BTL ONE (07:17)
[2018-04-25] MEDS ORDERED: Neomycin/Polymy/Dex OPHTH.OIN* 3.5 GM ONE (07:18)
[2018-04-25] MEDS ORDERED: fentaNYL* 50 MCG/ML 2 ML VIAL (100 MCG VIAL) IV PRN (07:29)
[2018-04-25] MEDS ORDERED: Ondansetron INJ* 2 MG/ML VIAL IV PRN (07:29)
[2018-04-25] MEDS ORDERED: oxyCODONE/Acetamin 5/325 MG* TAB PO PRN (07:29)
[2018-04-25] MEDS ORDERED: DiMENhydriNATE IV* 50 MG/ML VIAL IV PUSH PRN (07:29)
[2018-04-25] MEDS ORDERED: Lidocaine 4% TOPICAL* 50 ML TOP.SOLN ONE (07:29)
[2018-04-25] MEDS ORDERED: Naloxone* 0.4 MG/ML 1 ML VIAL IV PRN (07:29)
[2018-04-25 09:03] VITALS: BP 143/66
--- NOTE | 2018-04-26 03:24 | OP ---
DATE OF OPERATION: 04/25/18 [facility] DATE OF : 53 SURGEON: Dr. Cristhian Ceja. RIGHT OF WAY MAINTENANCE SUPERVISOR: None. PRE-OP DIAGNOSIS: Nasolacrimal duct obstruction, right eye. POST-OP DIAGNOSIS: Nasolacrimal duct obstruction, right eye. OPERATIVE PROCEDURE: Probe and irrigation with Powers tube placement right nasolacrimal duct. COMPLICATIONS: None. BLOOD LOSS: Less than 5 cc. DESCRIPTION OF PROCEDURE: The patient was brought to the operating room and given general anesthesia via an LMA tube. Attention was directed to the right eye and nose. A pledget soaked in Afrin and 4% lidocaine was introduced into the right nostril. Attention was directed to the right inferior puncta, which was dilated with the punctal dilator. A #0-0 Leone's probe was placed through the puncta and through the extent of the nasolacrimal duct into the nose. This was then removed and the superior puncta was dilated and also had a #0-0 Leone' s probe placed through into the nose. The Afrin and lidocaine soaked pledgets were removed. A larger Leone's probe was placed into the right nostril and metal on metal contact was confirmed. All probes were removed. Powers tube was readied and the metal [place] tip was placed through superior puncta and thread into place. Here, a Powers tube hook was introduced until the metal end of the Powers tube and hook were engaged. The Powers tube hook was pulled out bringing the end of the Powers tube with it. Similarly, the other end of the Powers tube was threaded to the other punctum and retrieved from the nostril. There was moderate bleeding that occurred during this process and gentle suction and time achieved hemostasis. The Powers tube [place] tip metal ends were cut off and the silicone was tied securely in the nostril. The Powers tube was inspected and found to be in proper position with appropriate tension between the superior and inferior puncta. The patient was awakened from general anesthesia after the LMA was removed and more suction was applied. A small amount of Maxitrol ointment was placed into the conjunctiva fornix. The patient was sent to recovery room in stable condition with postop instructions and followup appointment given. [id number]/[facility] #: [id number] [facility] CENTERDavion
== END 2018-04-25 09:18 | disposition home or self-care (01) ==
LOC: OREAST 06:32
PROVIDERS: ATTEND Ophthalmology
DX: H04.551 Acquired stenosis of right nasolacrimal duct (principal); E11.9 Type 2 diabetes mellitus without complications; Z79.84 Long term (current) use of oral hypoglycemic drugs; I10 Essential (primary) hypertension; K21.9 Gastro-esophageal reflux disease without esophagitis; D68.61 Antiphospholipid syndrome
CPT/HCPCS: A9270-GY; J1100; J1885; J2250; J2405; J2704; J3010

== ENCOUNTER 2022-06-10 07:21 | Inpatient (IN) ==
[2022-06-10] MEDS ORDERED: Ondansetron 4 mg VIAL 2 MG/ML 2 ml VIAL IV ONE (08:16)
[2022-06-10] MEDS ORDERED: Morphine 4 MG/ML VIAL (1 ml) IV ONE ×2 (08:16→11:28)
[2022-06-10 09:08] LABS: ABS Lymphocytes 0.6 10^3/ul (1.0-4.8); ABS Monocytes 0.6 10^3/ul (0-0.8); ABS Neutrophils 10.8 10^3/ul (1.5-7.7); Eosinophil % 0.1 %; Hematocrit 41 % (35-47); Hemoglobin 13.5 g/dL (12.0-16.0); Lymphocyte % 4.8 %; Mean Corpuscular HGB Conc 33 g/dL (31-36); Mean Corpuscular Hemoglobin 31 pg (27-31); Mean Corpuscular Volume 95 fL (80-97); Mean Platelet Volume 7.9 fL (7.4-10.4); Platelet Count 199 10^3/uL (150-450); Red Blood Count 4.34 10^6 /uL (3.70-4.87); Red Cell Distribution Width 15 % (10-15)
[2022-06-10 09:47] LABS: Albumin 3.8 g/dL (3.2-5.2); Albumin/Globulin Ratio 1.7 (1-3); C Reactive Protein 140.24 mg/L (<8.01); Calcium 8.7 mg/dL (8.6-10.3); Globulin 2.3 g/dL (2-4); Potassium 3.9 mmol/L (3.5-5.0); Total Bilirubin 1.6 mg/dL (0.2-1.0); Total Protein 6.1 g/dL (6.4-8.9); eGFR CKD-EPI 99.8 (>60)
[2022-06-10] MEDS ORDERED: Iodixanol (CONTRAST) 320 MG/ML 100 ML SDV IV ONE (10:31)
[2022-06-10] MEDS ORDERED: Piperacillin/Tazobac ADVAN 3.375 GM in NS 0.9% 100 ml BAG 100 ML IV ONE (11:08)
[2022-06-10] MEDS ORDERED: HYDROmorphone 0.5 MG/0.5 ML SYRINGE IV SLOW PU ONE (13:26)
[2022-06-10] MEDS ORDERED: Acetaminophen IV 1 GM/100ML 1,000 MG/100 ML BAG IV ONE (13:27)
[2022-06-10] MEDS ORDERED: HYDROmorphone 1 MG/1 ML SYRINGE IV ONE (13:40)
[2022-06-10] MEDS ORDERED: Ondansetron 4 mg VIAL 2 MG/ML 2 ml VIAL IV PRN (14:06)
[2022-06-10] MEDS ORDERED: Acetaminophen IV 1 GM/100ML 1,000 MG/100 ML BAG IV PRN (14:06)
[2022-06-10] MEDS ORDERED: Lactated Ringers 1000 ml BAG 1,000 ML IV SCH (15:00)
[2022-06-10] MEDS ORDERED: Zosyn per Pharmacy NOTE FOLLOW UP SCH (15:00)
[2022-06-10] MEDS: ZOSYN 3.375 GM Q8H per EXTENDED INFUSION IV SCH ×2 (15:15→23:53)
[2022-06-10 18:26] LABS: Urine Appearance Clear; Urine Bilirubin Negative (Negative); Urine Blood 1+ (Negative); Urine Color Yellow; Urine Glucose Negative (Negative); Urine Ketones Trace (Negative); Urine Nitrite Negative (Negative); Urine Protein 1+(30 mg/dL) (Negative); Urine Specific Gravity 1.057 (1.002-1.030); Urine Urobilinogen Negative (Negative)
[2022-06-10 18:29] LABS: Urine Bacteria Absent (Absent); Urine Red Blood Cell 2+(6-10/hpf) (Absent); Urine Squamous Epithelial Cell Present (Absent); Urine White Blood Cell Trace(0-5/hpf) (Absent)
[2022-06-10] MEDS ORDERED: [UNRECOGNIZED DRUG - OTHER] PO PRN (19:33)
[2022-06-10] MEDS: Enoxaparin 60 MG/0.6 ML SYR SUBCUT SCH (20:49)
[2022-06-10] MEDS: CMCS: Cyclosporine 0.05% OPHTH (NF) 0.4 ML VIAL BOTH EYES SCH (20:50)
[2022-06-10] MEDS ORDERED: Enoxaparin 40 MG/0.4 ML SYR SUBCUT SCH (21:00)
[2022-06-10] MEDS: HYDROmorphone 1 MG/1 ML SYRINGE IV SLOW PU PRN (23:50)
[2022-06-11] MEDS: HYDROmorphone 1 MG/1 ML SYRINGE IV SLOW PU PRN (04:08)
[2022-06-11] MEDS: ZOSYN 3.375 GM Q8H per EXTENDED INFUSION IV SCH ×3 (07:55→23:08)
[2022-06-11] MEDS ORDERED: HYDROmorphone 1 MG/1 ML SYRINGE IV SLOW PU PRN (09:57)
[2022-06-11] MEDS ORDERED: NS 0.9% 1000 ml BAG 1,000 ML IV SCH (10:00)
[2022-06-11 10:23] LABS: ABS Lymphocytes 0.6 10^3/ul (1.0-4.8); ABS Monocytes 0.6 10^3/ul (0-0.8); ABS Neutrophils 9.2 10^3/ul (1.5-7.7); Eosinophil % 0.1 %; Hematocrit 41 % (35-47); Hemoglobin 13.7 g/dL (12.0-16.0); Lymphocyte % 5.4 %; Mean Corpuscular HGB Conc 33 g/dL (31-36); Mean Corpuscular Hemoglobin 32 pg (27-31); Mean Corpuscular Volume 96 fL (80-97); Mean Platelet Volume 7.7 fL (7.4-10.4); Platelet Count 213 10^3/uL (150-450); Red Blood Count 4.32 10^6 /uL (3.70-4.87); Red Cell Distribution Width 15 % (10-15); White Blood Count 10.4 10^3/uL (3.5-10.8)
[2022-06-11] MEDS: Enoxaparin 60 MG/0.6 ML SYR SUBCUT SCH ×2 (10:43→20:05)
[2022-06-11] MEDS: CMCS: Cyclosporine 0.05% OPHTH (NF) 0.4 ML VIAL BOTH EYES SCH ×2 (10:43→20:04)
[2022-06-11 11:01] LABS: C Reactive Protein 381.92 mg/L (<8.01); Calcium 8.7 mg/dL (8.6-10.3); eGFR CKD-EPI 101.6 (>60)
[2022-06-11] MEDS: Polyethylene Glycol 3350 17 GM PACKET PO PRN (23:18)
[2022-06-12] MEDS: ZOSYN 3.375 GM Q8H per EXTENDED INFUSION IV SCH ×3 (07:59→23:36)
[2022-06-12] MEDS: Polyethylene Glycol 3350 17 GM PACKET PO PRN ×2 (08:06→19:47)
[2022-06-12] MEDS: Enoxaparin 60 MG/0.6 ML SYR SUBCUT SCH ×2 (08:25→19:49)
[2022-06-12] MEDS: CMCS: Cyclosporine 0.05% OPHTH (NF) 0.4 ML VIAL BOTH EYES SCH ×2 (08:25→19:49)
[2022-06-12] MEDS ORDERED: Al Hydrox/Mg Hydrox/Simet LIQ 30 ML UDC PO ONE (21:35)
[2022-06-13 07:29] LABS: Albumin/Globulin Ratio 1.3 (1-3); C Reactive Protein 286.02 mg/L (<8.01); Calcium 8.1 mg/dL (8.6-10.3); Globulin 2.3 g/dL (2-4); Potassium 3.7 mmol/L (3.5-5.0); Total Protein 5.3 g/dL (6.4-8.9); eGFR CKD-EPI 104.7 (>60)
[2022-06-13] MEDS: Polyethylene Glycol 3350 17 GM PACKET PO PRN ×2 (07:42→21:17)
[2022-06-13] MEDS: ZOSYN 3.375 GM Q8H per EXTENDED INFUSION IV SCH ×3 (07:55→23:32)
[2022-06-13] MEDS: CMCS: Cyclosporine 0.05% OPHTH (NF) 0.4 ML VIAL BOTH EYES SCH ×2 (08:43→21:19)
[2022-06-13] MEDS: Enoxaparin 60 MG/0.6 ML SYR SUBCUT SCH ×2 (08:43→21:19)
[2022-06-13] MEDS: Senna TAB 8.6 mg TAB PO SCH (15:49)
[2022-06-14] MEDS: Enoxaparin 60 MG/0.6 ML SYR SUBCUT SCH ×2 (07:51→19:29)
[2022-06-14] MEDS: CMCS: Cyclosporine 0.05% OPHTH (NF) 0.4 ML VIAL BOTH EYES SCH ×2 (07:51→19:29)
[2022-06-14] MEDS: Senna TAB 8.6 mg TAB PO SCH (07:51)
[2022-06-14] MEDS: ZOSYN 3.375 GM Q8H per EXTENDED INFUSION IV SCH ×2 (07:51→16:18)
[2022-06-14] MEDS: Polyethylene Glycol 3350 17 GM PACKET PO PRN (20:49)
[2022-06-15] MEDS: ZOSYN 3.375 GM Q8H per EXTENDED INFUSION IV SCH ×2 (00:18→07:46)
[2022-06-15] MEDS: CMCS: Cyclosporine 0.05% OPHTH (NF) 0.4 ML VIAL BOTH EYES SCH (07:44)
[2022-06-15] MEDS: Enoxaparin 60 MG/0.6 ML SYR SUBCUT SCH (07:45)
[2022-06-15] MEDS: Senna TAB 8.6 mg TAB PO SCH (07:45)
[2022-06-15 10:49] VITALS: BP 127/71
== END 2022-06-15 14:00 | disposition home or self-care (01) | DRG 392 ==
LOC: ED 07:21 → EDHOLD 17:38 → SUATTDRO 17:38 → MED 17:59
PROVIDERS: ADMIT Internal Medicine; ATTEND Internal Medicine

== ENCOUNTER 2022-07-17 23:02 | Inpatient (IN) ==
[2022-07-17] MEDS ORDERED: Lactated Ringers 1000 ml BAG 1,000 ML IV ONE (23:24)
[2022-07-17] MEDS ORDERED: Morphine 4 MG/ML VIAL (1 ml) IV ONE (23:24)
[2022-07-17] MEDS ORDERED: Ondansetron 4 mg VIAL 2 MG/ML 2 ml VIAL IV ONE (23:24)
[2022-07-17 23:37] LABS: ABS Lymphocytes 1.4 10^3/ul (1.0-4.8); ABS Monocytes 0.7 10^3/ul (0-0.8); ABS Neutrophils 11.8 10^3/ul (1.5-7.7); Eosinophil % 0.2 %; Hematocrit 40 % (35-47); Hemoglobin 13.1 g/dL (12.0-16.0); Lymphocyte % 10.2 %; Mean Corpuscular HGB Conc 33 g/dL (31-36); Mean Corpuscular Hemoglobin 30 pg (27-31); Mean Corpuscular Volume 92 fL (80-97); Mean Platelet Volume 7.4 fL (7.4-10.4); Platelet Count 296 10^3/uL (150-450); Red Blood Count 4.36 10^6 /uL (3.70-4.87); Red Cell Distribution Width 16 % (10-15); White Blood Count 14.1 10^3/uL (3.5-10.8)
[2022-07-17] MEDS ORDERED: HYDROmorphone 1 MG/1 ML SYRINGE IV SLOW PU ONE (23:39)
[2022-07-18 00:14] LABS: Albumin 3.8 g/dL (3.2-5.2); Albumin/Globulin Ratio 1.5 (1-3); C Reactive Protein 12.24 mg/L (<8.01); Calcium 8.9 mg/dL (8.6-10.3); Creatinine, Serum 0.56 mg/dL (0.51-0.95); Globulin 2.5 g/dL (2-4); Total Bilirubin 0.8 mg/dL (0.2-1.0); Total Protein 6.3 g/dL (6.4-8.9); eGFR CKD-EPI 99.3 (>60)
[2022-07-18] MEDS ORDERED: Morphine 4 MG/ML VIAL (1 ml) IV ONE (02:32)
[2022-07-18] MEDS ORDERED: Piperacillin/Tazobac ADVAN 3.375 GM in NS 0.9% 100 ml BAG 100 ML IV ONE (05:33)
[2022-07-18] MEDS ORDERED: Ondansetron 4 mg VIAL 2 MG/ML 2 ml VIAL IV PRN (07:49)
[2022-07-18] MEDS: HYDROmorphone 0.5 MG/0.5 ML SYRINGE IV SLOW PU PRN ×4 (08:44→23:30)
[2022-07-18] MEDS ORDERED: Zosyn per Pharmacy NOTE FOLLOW UP SCH (09:00)
[2022-07-18] MEDS: ZOSYN 3.375 GM Q8H per EXTENDED INFUSION IV SCH ×2 (10:36→18:11)
[2022-07-18] MEDS: NS 0.9% 1000 ml BAG 1,000 ML IV SCH ×2 (12:01→23:29)
[2022-07-18 12:42] LABS: Urine Appearance Clear; Urine Bilirubin Negative (Negative); Urine Blood Negative (Negative); Urine Color Yellow; Urine Glucose Negative (Negative); Urine Ketones Negative (Negative); Urine Nitrite Negative (Negative); Urine Protein Negative (Negative); Urine Specific Gravity 1.015 (1.005-1.030); Urine Urobilinogen 0.2 (Negative) (Negative)
[2022-07-18] MEDS ORDERED: hydrALAZINE 20 mg/ml 1 ML Vial IV IV SLOW PU PRN (17:26)
[2022-07-18] MEDS ORDERED: Dextrose 50% Syringe 50 ml 25 GM/50 ML SYRINGE IV PUSH PRN (17:30)
[2022-07-18] MEDS ORDERED: Enoxaparin 60 MG/0.6 ML SYR SUBCUT SCH (18:00)
[2022-07-19] MEDS: ZOSYN 3.375 GM Q8H per EXTENDED INFUSION IV SCH ×3 (01:29→17:48)
[2022-07-19] MEDS: Enoxaparin 60 MG/0.6 ML SYR SUBCUT SCH ×2 (06:09→16:30)
[2022-07-19] MEDS: HYDROmorphone 0.5 MG/0.5 ML SYRINGE IV SLOW PU PRN ×2 (17:31→23:15)
[2022-07-20] MEDS: ZOSYN 3.375 GM Q8H per EXTENDED INFUSION IV SCH ×3 (02:38→17:30)
[2022-07-20] MEDS: Enoxaparin 60 MG/0.6 ML SYR SUBCUT SCH ×2 (04:49→16:56)
[2022-07-20 05:39] LABS: ABS Monocytes 0.7 10^3/ul (0-0.8); ABS Neutrophils 11.8 10^3/ul (1.5-7.7); Eosinophil % 0.3 %; Hematocrit 36 % (35-47); Hemoglobin 12.2 g/dL (12.0-16.0); Lymphocyte % 7.6 %; Mean Corpuscular HGB Conc 34 g/dL (31-36); Mean Corpuscular Hemoglobin 31 pg (27-31); Mean Corpuscular Volume 90 fL (80-97); Mean Platelet Volume 7.2 fL (7.4-10.4); Nucleated Red Blood Cells % 0.1; Platelet Count 257 10^3/uL (150-450); Red Blood Count 3.95 10^6 /uL (3.70-4.87); Red Cell Distribution Width 15 % (10-15); White Blood Count 13.7 10^3/uL (3.5-10.8)
[2022-07-20 06:21] LABS: C Reactive Protein 251.45 mg/L (<8.01); Calcium 8.2 mg/dL (8.6-10.3); Creatinine, Serum 0.46 mg/dL (0.51-0.95); Magnesium 2.2 mg/dL (1.9-2.7); Potassium 4.5 mmol/L (3.5-5.0); eGFR CKD-EPI 104.2 (>60)
[2022-07-20] MEDS ORDERED: Senna TAB 8.6 mg TAB PO PRN (13:57)
[2022-07-20] MEDS ORDERED: Magnesium Hydroxide LIQ 30 ML UDC PO PRN (13:57)
[2022-07-20] MEDS ORDERED: HYDROmorphone 0.5 MG/0.5 ML SYRINGE IV SLOW PU PRN (14:01)
[2022-07-20] MEDS: Polyethylene Glycol 3350 17 GM PACKET PO PRN (14:39)
[2022-07-20] MEDS: Magnesium Hydroxide LIQ 30 ML UDC PO SCH (20:54)
[2022-07-21] MEDS: ZOSYN 3.375 GM Q8H per EXTENDED INFUSION IV SCH ×3 (01:20→17:54)
[2022-07-21] MEDS: Enoxaparin 60 MG/0.6 ML SYR SUBCUT SCH ×2 (05:27→16:25)
[2022-07-21] MEDS: Magnesium Hydroxide LIQ 30 ML UDC PO SCH ×2 (07:50→20:07)
[2022-07-21] MEDS: [UNRECOGNIZED DRUG - OTHER] PO SCH (07:51)
[2022-07-21] MEDS: Polyethylene Glycol 3350 17 GM PACKET PO PRN (18:01)
[2022-07-22] MEDS: ZOSYN 3.375 GM Q8H per EXTENDED INFUSION IV SCH ×4 (01:52→22:38)
[2022-07-22] MEDS: Enoxaparin 60 MG/0.6 ML SYR SUBCUT SCH (05:32)
[2022-07-22 06:52] LABS: C Reactive Protein 143.23 mg/L (<8.01); Calcium 8.2 mg/dL (8.6-10.3); Creatinine, Serum 0.43 mg/dL (0.51-0.95); Potassium 4.3 mmol/L (3.5-5.0); eGFR CKD-EPI 105.9 (>60)
[2022-07-22 06:58] LABS: Hematocrit 36 % (35-47); Mean Corpuscular HGB Conc 33 g/dL (31-36); Mean Corpuscular Hemoglobin 30 pg (27-31); Mean Corpuscular Volume 92 fL (80-97); Mean Platelet Volume 7.6 fL (7.4-10.4); Platelet Count 336 10^3/uL (150-450); Red Blood Count 3.96 10^6 /uL (3.70-4.87); Red Cell Distribution Width 16 % (10-15)
[2022-07-22 07:05] LABS: ABS Eosinophils 0.1 10^3/ul (0-0.6); ABS Lymphocytes 1.2 10^3/ul (1.0-4.8); ABS Monocytes 0.7 10^3/ul (0-0.8); Eosinophil % 0.6 %
[2022-07-22] MEDS: [UNRECOGNIZED DRUG - OTHER] PO SCH (08:44)
[2022-07-22] MEDS: Magnesium Hydroxide LIQ 30 ML UDC PO SCH ×2 (08:44→22:39)
[2022-07-22] MEDS ORDERED: SUPREP BOWEL PREP PO ONE (09:00)
[2022-07-22] MEDS ORDERED: Buffered Lidocaine 1% SYRIN 1 ml INTRADERM ONE (10:51)
[2022-07-22] MEDS ORDERED: Lactated Ringers 1000 ml BAG 1,000 ML IV SCH (11:00)
[2022-07-23] MEDS: Acetaminophen IV 1 GM/100ML 1,000 MG/100 ML BAG IV PRN ×2 (04:29→16:35)
[2022-07-23] MEDS: ZOSYN 3.375 GM Q8H per EXTENDED INFUSION IV SCH ×3 (05:08→23:18)
[2022-07-23 05:41] LABS: ABS Eosinophils 0.1 10^3/ul (0-0.6); ABS Lymphocytes 1.1 10^3/ul (1.0-4.8); ABS Monocytes 0.6 10^3/ul (0-0.8); ABS Neutrophils 5.3 10^3/ul (1.5-7.7); Eosinophil % 0.8 %; Hematocrit 36 % (35-47); Hemoglobin 12.2 g/dL (12.0-16.0); Lymphocyte % 15.3 %; Mean Corpuscular HGB Conc 34 g/dL (31-36); Mean Corpuscular Hemoglobin 31 pg (27-31); Mean Corpuscular Volume 91 fL (80-97); Mean Platelet Volume 6.9 fL (7.4-10.4); Nucleated Red Blood Cells % 0.1; Platelet Count 346 10^3/uL (150-450); Red Blood Count 3.98 10^6 /uL (3.70-4.87); Red Cell Distribution Width 16 % (10-15); White Blood Count 7.1 10^3/uL (3.5-10.8)
[2022-07-23 05:45] LABS: INR 1.27 (0.88-1.18)
[2022-07-23 06:47] LABS: Creatinine, Serum 0.42 mg/dL (0.51-0.95); Potassium 3.8 mmol/L (3.5-5.0); eGFR CKD-EPI 106.5 (>60)
[2022-07-23] MEDS: Magnesium Hydroxide LIQ 30 ML UDC PO SCH ×2 (07:15→21:17)
[2022-07-23] MEDS: [UNRECOGNIZED DRUG - OTHER] PO SCH (07:15)
[2022-07-23] MEDS ORDERED: Ketamine HCL 50 mg/ml 10 ml VIAL (500 MG) ONE (09:12)
[2022-07-23] MEDS ORDERED: Lidocaine 2% PF 5 ML VIAL ONE (09:12)
[2022-07-23] MEDS ORDERED: fentaNYL 250 mcg/5 ml 50 MCG/ML 5 ml VIAL (250 MCG) ONE (09:12)
[2022-07-23] MEDS ORDERED: Propofol 10 MG/ML 20 ML BTL ONE (09:12)
[2022-07-23] MEDS ORDERED: Midazolam 5 mg/5 ml VIAL 1 mg/ml 5 ml VIAL (5 mg) ONE (09:35)
[2022-07-23] MEDS ORDERED: Lidocaine 4 MG/ML IV PREMIX 2,000 MG/500 ML BAG IV ONE (10:10)
[2022-07-23] MEDS ORDERED: Lidocaine 1% VIAL 10 MG/ML VIAL 30 ML ONE (10:12)
[2022-07-23] MEDS ORDERED: Dexamethasone IV 4 MG/ML VIAL 1 ml VIAL ONE (11:00)
[2022-07-23] MEDS ORDERED: Ondansetron 4 mg VIAL 2 MG/ML 2 ml VIAL ONE ×2 (11:00→15:36)
[2022-07-23] MEDS ORDERED: Naloxone 0.4 mg VIAL 0.4 mg/ml 1 ml VIAL IV PRN (11:29)
[2022-07-23] MEDS ORDERED: Ondansetron 4 mg VIAL 2 MG/ML 2 ml VIAL IV PRN (11:29)
[2022-07-23] MEDS ORDERED: Rocuronium 50 mg VIAL 10 mg/ml 5 ml VIAL (50 mg) ONE (13:10)
[2022-07-23] MEDS ORDERED: HYDROmorphone 1 MG/1 ML SYRINGE ONE ×2 (15:09→16:24)
[2022-07-23] MEDS ORDERED: fentaNYL 100 mcg/2 ml 50 MCG/ML VIAL ONE (15:10)
[2022-07-23] MEDS: HYDROmorphone 1 MG/1 ML SYRINGE IV PRN ×5 (15:11→16:00)
[2022-07-23] MEDS: fentaNYL 100 mcg/2 ml 50 MCG/ML VIAL IV PRN ×4 (15:17→16:07)
[2022-07-23] MEDS ORDERED: Naloxone 0.4 mg VIAL 0.4 mg/ml 1 ml VIAL IV PUSH PRN (16:21)
[2022-07-23] MEDS: HYDROmorphone 1 MG/1 ML SYRINGE IV SLOW PU PRN ×2 (16:26→16:59)
[2022-07-23] MEDS ORDERED: Acetaminophen IV 1 GM/100ML 1,000 MG/100 ML BAG IV ONE (16:33)
[2022-07-23] MEDS ORDERED: HYDROmorphone 0.5 MG/0.5 ML SYRINGE IV SLOW PU ONE (17:07)
[2022-07-23] MEDS: HYDROmorphone PCA 20 MG/20 ML PCA.SYRING PCA SCH (17:18)
[2022-07-23] MEDS: NS 0.9% 1000 ml BAG 1,000 ML IV SCH (19:47)
[2022-07-24] MEDS ORDERED: Calcium Carb (TUMS) 500 mg CHEW TAB PO ONE (02:46)
[2022-07-24] MEDS: NS 0.9% 1000 ml BAG 1,000 ML IV SCH ×2 (04:16→10:06)
[2022-07-24] MEDS: Heparin 5000 UNITS/ML 1 mL VIAL SUBCUT SCH ×3 (05:27→21:18)
[2022-07-24] MEDS: ZOSYN 3.375 GM Q8H per EXTENDED INFUSION IV SCH ×3 (05:29→21:09)
[2022-07-24 05:54] LABS: ABS Lymphocytes 1.2 10^3/ul (1.0-4.8); ABS Neutrophils 9.6 10^3/ul (1.5-7.7); Hematocrit 36 % (35-47); Hemoglobin 11.7 g/dL (12.0-16.0); Mean Corpuscular HGB Conc 32 g/dL (31-36); Mean Corpuscular Hemoglobin 30 pg (27-31); Mean Corpuscular Volume 91 fL (80-97); Mean Platelet Volume 7.3 fL (7.4-10.4); Platelet Count 357 10^3/uL (150-450); Red Blood Count 3.93 10^6 /uL (3.70-4.87); Red Cell Distribution Width 16 % (10-15); White Blood Count 11.8 10^3/uL (3.5-10.8)
[2022-07-24 06:11] LABS: Calcium 8.2 mg/dL (8.6-10.3); Creatinine, Serum 0.4 mg/dL (0.51-0.95); Potassium 4.3 mmol/L (3.5-5.0); eGFR CKD-EPI 107.7 (>60)
[2022-07-24] MEDS: Magnesium Hydroxide LIQ 30 ML UDC PO SCH ×2 (08:28→21:14)
[2022-07-24] MEDS: [UNRECOGNIZED DRUG - OTHER] PO SCH (11:07)
[2022-07-25] MEDS: NS 0.9% 1000 ml BAG 1,000 ML IV SCH (03:56)
[2022-07-25] MEDS: ZOSYN 3.375 GM Q8H per EXTENDED INFUSION IV SCH ×3 (05:28→21:20)
[2022-07-25] MEDS: Heparin 5000 UNITS/ML 1 mL VIAL SUBCUT SCH ×3 (05:32→21:13)
[2022-07-25 07:08] LABS: ABS Monocytes 0.6 10^3/ul (0-0.8); ABS Neutrophils 6.8 10^3/ul (1.5-7.7); Eosinophil % 0.6 %; Hematocrit 31 % (35-47); Hemoglobin 9.7 g/dL (12.0-16.0); Lymphocyte % 11.8 %; Mean Corpuscular HGB Conc 32 g/dL (31-36); Mean Corpuscular Hemoglobin 29 pg (27-31); Mean Corpuscular Volume 92 fL (80-97); Mean Platelet Volume 6.8 fL (7.4-10.4); Platelet Count 313 10^3/uL (150-450); Red Blood Count 3.32 10^6 /uL (3.70-4.87); Red Cell Distribution Width 16 % (10-15); White Blood Count 8.5 10^3/uL (3.5-10.8)
[2022-07-25] MEDS: HYDROmorphone PCA 20 MG/20 ML PCA.SYRING PCA SCH (07:37)
[2022-07-25 07:49] LABS: Calcium 6.9 mg/dL (8.6-10.3); Creatinine, Serum 0.32 mg/dL (0.51-0.95); Potassium 3.9 mmol/L (3.5-5.0); eGFR CKD-EPI 113.7 (>60)
[2022-07-25] MEDS: Magnesium Hydroxide LIQ 30 ML UDC PO SCH ×2 (08:15→21:03)
[2022-07-25] MEDS: [UNRECOGNIZED DRUG - OTHER] PO SCH (08:15)
[2022-07-25] MEDS ORDERED: Lactated Ringers 1000 ml BAG 1,000 ML IV SCH (09:00)
[2022-07-25] MEDS: Acetaminophen IV 1 GM/100ML 1,000 MG/100 ML BAG IV PRN (21:07)
[2022-07-26] MEDS: ZOSYN 3.375 GM Q8H per EXTENDED INFUSION IV SCH ×3 (05:54→21:14)
[2022-07-26] MEDS: Heparin 5000 UNITS/ML 1 mL VIAL SUBCUT SCH (05:56)
[2022-07-26 06:11] LABS: ABS Eosinophils 0.1 10^3/ul (0-0.6); ABS Lymphocytes 1.1 10^3/ul (1.0-4.8); ABS Monocytes 0.5 10^3/ul (0-0.8); ABS Neutrophils 6.1 10^3/ul (1.5-7.7); Eosinophil % 1.2 %; Hematocrit 34 % (35-47); Lymphocyte % 14.1 %; Mean Corpuscular HGB Conc 32 g/dL (31-36); Mean Corpuscular Hemoglobin 30 pg (27-31); Mean Corpuscular Volume 91 fL (80-97); Mean Platelet Volume 7.5 fL (7.4-10.4); Platelet Count 337 10^3/uL (150-450); Red Blood Count 3.72 10^6 /uL (3.70-4.87); Red Cell Distribution Width 16 % (10-15); White Blood Count 7.8 10^3/uL (3.5-10.8)
[2022-07-26 06:30] LABS: Calcium 7.8 mg/dL (8.6-10.3); Creatinine, Serum 0.35 mg/dL (0.51-0.95); Potassium 4.1 mmol/L (3.5-5.0); eGFR CKD-EPI 111.3 (>60)
[2022-07-26] MEDS ORDERED: HYDROmorphone 0.5 MG/0.5 ML SYRINGE IV SLOW PU PRN (09:12)
[2022-07-26] MEDS: [UNRECOGNIZED DRUG - OTHER] PO SCH (09:36)
[2022-07-26] MEDS: Magnesium Hydroxide LIQ 30 ML UDC PO SCH ×2 (09:52→21:14)
[2022-07-27] MEDS: ZOSYN 3.375 GM Q8H per EXTENDED INFUSION IV SCH (06:00)
[2022-07-27 07:00] LABS: ABS Eosinophils 0.1 10^3/ul (0-0.6); ABS Lymphocytes 1.2 10^3/ul (1.0-4.8); ABS Monocytes 0.5 10^3/ul (0-0.8); ABS Neutrophils 4.2 10^3/ul (1.5-7.7); Eosinophil % 1.9 %; Hematocrit 33 % (35-47); Hemoglobin 10.5 g/dL (12.0-16.0); Lymphocyte % 19.8 %; Mean Corpuscular HGB Conc 32 g/dL (31-36); Mean Corpuscular Hemoglobin 29 pg (27-31); Mean Corpuscular Volume 91 fL (80-97); Mean Platelet Volume 7.1 fL (7.4-10.4); Platelet Count 368 10^3/uL (150-450); Red Blood Count 3.62 10^6 /uL (3.70-4.87); Red Cell Distribution Width 16 % (10-15)
[2022-07-27 07:39] VITALS: BP 145/70
[2022-07-27 07:42] LABS: Anion Gap 8 mmol/L (2-11); CO2 Carbon Dioxide 28 mmol/L (22-32); Calcium 7.8 mg/dL (8.6-10.3); Chloride 109 mmol/L (101-111); Potassium 3.8 mmol/L (3.5-5.0); Sodium 145 mmol/L (135-145)
[2022-07-27 07:47] LABS: Blood Urea Nitrogen 7 mg/dL (6-24); Creatinine, Serum 0.37 mg/dL (0.51-0.95); Glucose 104 mg/dL (70-100); eGFR CKD-EPI 109.8 (>60)
[2022-07-27] MEDS: Magnesium Hydroxide LIQ 30 ML UDC PO SCH (09:36)
[2022-07-27 09:40] LABS: Albumin 2.9 g/dL (3.2-5.2)
[2022-07-27 09:46] LABS: ALT 10 U/L (7-52); AST 15 U/L (13-39); Albumin/Globulin Ratio 1.3 (1-3); Alkaline Phosphatase 43 U/L (35-149); Globulin 2.2 g/dL (2-4); Total Protein 5.1 g/dL (6.4-8.9)
[2022-07-27] MEDS: [UNRECOGNIZED DRUG - OTHER] PO SCH (09:58)
== END 2022-07-27 13:54 | disposition home or self-care (01) | DRG 330 ==
LOC: ED 23:02 → EDHOLD 23:02 → SUATTDRO 07-18 07:52 → EDHOLD 07-18 11:18 → SSU 07-18 11:53 → SUATTDRO 07-21 11:00
PROVIDERS: ADMIT Internal Medicine; ATTEND Internal Medicine